=== PATIENT | female | born 1965 | race Caucasian/White ===

== ENCOUNTER → 2018-01-31 | Outpatient (CLI) | payer BC ==
--- NOTE | 2018-01-31 15:04 | MM ---
Reason for exam: follow-up at short interval from prior study. Last mammogram was performed 6 months ago. History: Patient is postmenopausal, has history of breast cancer at age 39, and history of other cancer. Family history of breast cancer in paternal grandmother, premenopausal breast cancer in mother at age 28, breast cancer in maternal grandmother, and breast cancer in paternal cousin. Benign US RT VAD breast biopsy of the right breast, July 24, 2012. Retro-pectoral silicone gel implants in both breasts, January 2007. Excisional biopsy of the right breast, October 03, 2005. Malignant right mammotome panel of the right breast, September 19, 2005. Chemotherapy, 2005. 2 lumpectomies of the right breast. Took hormonal contraceptives for 6 years. Physical Findings: Nurse did not find any significant physical abnormalities on exam. MG 3D Diag Mammo W/Cad RT CC and MLO view(s) were taken of the right breast. Prior study comparison: August 01, 2017, bilateral MG diag mamm implants THERESA w CAD. July 25, 2016, bilateral MG diagnostic mammo w CAD HTERESA. The breast tissue is heterogeneously dense. This may lower the sensitivity of mammography. Finding #1: Architectural distortion in the upper quadrant of the right breast consistent with known lumpectomy. Finding #2: There are typically benign vascular, linear calcifications in the right breast. Right implant. These results were verbally communicated with the patient and result sheet given to the patient on 01/31/18. ASSESSMENT: Benign, BI-RAD 2 RECOMMENDATION: Follow-up diagnostic mammogram of the right breast in 1 year.
== END | disposition home or self-care (01) ==
LOC: RADMAMWWP 11:45
PROVIDERS: ATTEND Obstetrics & Gynecology
DX: R92.8 Other abnormal and inconclusive findings on diagnostic imaging of breast (principal); Z98.82 Breast implant status
CPT/HCPCS: 77061; 77065

== ENCOUNTER → 2018-08-21 | Outpatient (CLI) | payer BC ==
[2018-08-21 13:00] VITALS: BP 102/57; PULSE 102; TEMP 97.8; BMI 23.5
--- NOTE | 2018-08-21 13:46 | P.HPOB ---
History of Present Illness H&P Date: 08/21/18 Chief Complaint: The patient is here for her routine gynecologic exam and mammogram. This is a 52-year-old with an LMP of 2012. The patient states she has had about 7 HSV outbreaks during the past year and would like to go back to daily suppressive therapy. The patient is otherwise without gynecologic complaints and denies any postmenopausal bleeding. Review of Systems The patient has gained 9 pounds over the last year. She denies respiratory or cardiac problems. G.I.: occasional heartburn. 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 BRCA testing was negative. History of Any Multi-Drug Resistant Organisms: None Reported Past Surgical History: Appendectomy, Bowel Resection (Partial colectomy for obstruction), Breast Surgery, Section (x4) Additional Past Surgical History / Comment(s): Bilateral lumpectomy, bilateral breast implants,right knee. 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 - Past Family History Mother Family Medical History: Cancer (Breast cancer) Additional Family Medical History / Comment(s): breast. Maternal grandmother had breast cancer. Father Additional Family Medical History / Comment(s): Heart disease. Paternal grand mother also had breast cancer. Paternal grandfather had colon cancer. Brother(s) Family Medical History: Diabetes Mellitus Medications and Allergies Home Medications Medication Instructions Recorded Confirmed Type No Known Home Medications 08/21/18 08/21/18 History Allergies Allergy/AdvReac Type Severity Reaction Status Date / Time No Known Allergies Allergy Unverified 08/21/18 12:47 Exam Vital Signs Temp Pulse BP 08/21/18 12:48 97.8 F 102 H 102/57 Intake and Output 08/20/18 08/21/18 08/21/18 22:59 06:59 14:59 Other: Weight 62.142 kg Height 5'4", weight 137 pounds, BMI 23.5. This is a well-developed well-nourished white female who is alert and oriented times 3 in no acute distress. HEENT: Within normal limits. NECK: Supple without mass or thyromegaly. CHEST AND LUNGS: Clear to auscultation. HEART: Regular rate and rhythm. BREASTS: Are without mass or discharge. There is a slightly dimpled area at the 12 o'clock position of the right breast consistent with her previous lumpectomy. Both breasts are consistent with breast implants. AXILLARY EXAM: Negative for adenopathy. BACK: Negative for CVA tenderness. ABDOMEN: Soft, nontender, without palpable masses. PELVIC EXAM: Normal external genitalia with mild atrophy. Cervix and vagina appear normal with mild atrophy. There is no unusual discharge. There is no evidence of prolapse. The uterus is midposition, nongravid size and nontender. There are no palpable adnexal masses or tenderness. RECTAL EXAM: rectovaginal exam is negative for mass or tenderness and is negative for occult blood. EXTREMITIES: Nontender. IMPRESSION: 1. 52-year-old menopausal female with normal gynecologic exam 2. Street of right breast cancer status post lumpectomy and adjuvant therapy with no evidence of recurrence. Bilateral breast implants. 3. History of genital HSV with increasing frequency of outbreaks. 7 outbreaks in the last year. PLAN: 1. Pap smear was performed. 2. Self breast awareness was discussed with the patient. 3. Diagnostic bilateral mammogram is due and this will be done today. 4. Osteoporosis prevention was discussed. I have stressed the importance of adequate calcium, vitamin D and regular exercise. Recommended amounts of calcium and vitamin D were also discussed. We will plan on doing bone density testing next year. 5. She will be restarted on daily Valtrex for suppression therapy. She will take Valtrex 500 mg 1 PO daily. The prescription will be sent to [facility] on [facility]. 6. She will return in one year.
--- NOTE | 2018-08-24 15:34 | MM ---
Reason for exam: history of breast cancer, conservation therapy. Last mammogram was performed 7 months ago. History: Patient is postmenopausal, has history of breast cancer at age 39, and history of other cancer. Family history of breast cancer in paternal grandmother, premenopausal breast cancer in mother at age 28, breast cancer in maternal grandmother, and breast cancer in paternal cousin. Benign US RT VAD breast biopsy of the right breast, July 24, 2012. Retro-pectoral silicone gel implants in both breasts, January 2007. Excisional biopsy of the right breast, October 03, 2005. Malignant right mammotome panel of the right breast, September 19, 2005. Chemotherapy, 2005. 2 lumpectomies of the right breast. Took hormonal contraceptives for 6 years. Physical Findings: Nurse did not find any significant physical abnormalities on exam. MG Diag Mamm Implants THERESA w CAD Bilateral CC, MLO, and ID view(s) were taken. Prior study comparison: January 31, 2018, right breast MG 3d diag mammo w/cad RT. August 01, 2017, bilateral MG diag mamm implants THERESA w CAD. The breast tissue is heterogeneously dense. This may lower the sensitivity of mammography. There is a distortion in the right breast consistent with lumpectomy redemonstrated. There are benign-appearing vascular right breast calcifications. Bilateral subpectoral implants are redemonstrated. No discrete abnormality. These results were verbally communicated with the patient and result sheet given to the patient on 08/21/18. ASSESSMENT: Benign, BI-RAD 2 RECOMMENDATION: Follow-up diagnostic mammogram of both breasts in 1 year.
== END ==
LOC: WWCWWP 12:40
PROVIDERS: ATTEND Obstetrics & Gynecology
DX: Z08 Encounter for follow-up examination after completed treatment for malignant neoplasm (principal); Z85.3 Personal history of malignant neoplasm of breast
CPT/HCPCS: 77066

== ENCOUNTER → 2019-10-22 | Outpatient (CLI) | payer BC ==
[2019-10-22 08:14] VITALS: BP 130/92; PULSE 86; RESP 18; TEMP 97.7
--- NOTE | 2019-10-22 08:56 | P.HPOB ---
History of Present Illness H&P Date: 10/22/19 Chief Complaint: The patient is here for her routine gynecologic exam and ma mmogram. This is a 54-year-old 014 with an LMP of 2013. The patient is without gynecologic complaints and denies any postmenopausal bleeding. The patient states she has done well with suppressive therapy for genital HSV. She has had very few outbreaks during the past year compared to prior to using the suppressive therapy. The patient has a history of right breast cancer and is status post lumpectomy and radiation treatment. She has bilateral breast implants. She states she occasionally noticed some internal breast itching especially when she is more active with her upper body. Review of Systems The patient's weight has been stable over the last year. She denies respiratory or cardiac problems. GI: Occasional heartburn. Past Medical History Past Medical History: No Reported History, Cancer Additional Past Medical History / Comment(s): Right breast cancer status post lumpectomy, chemotherapy and radiation therapy in 2003. 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 BRCA testing was negative. History of Any Multi-Drug Resistant Organisms: None Reported Past Surgical History: Appendectomy, Bowel Resection, Breast Surgery, Section Additional Past Surgical History / Comment(s): Bilateral lumpectomy, bilateral breast implants,right knee. Colonoscopy 2013 Past Psychological History: No Psychological Hx Reported Smoking Status: Former smoker Past Alcohol Use History: Occasional (2 per month) Additional Past Alcohol Use History / Comment(s): Quit smoking in her 20s. Past Drug Use History: None Reported Additional History: She has been since 1992 and her recently had an AL and CVA in 2019. 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 - Past Family History Mother Family Medical History: Cancer, Dementia Additional Family Medical History / Comment(s): breast cancer. Parkinson's disease. Maternal grandmother had breast cancer. Father Additional Family Medical History / Comment(s): Heart disease. Paternal grand mother also had breast cancer. Paternal grandfather had colon cancer. Brother(s) Family Medical History: Diabetes Mellitus Medications and Allergies Home Medications Medication Instructions Recorded Confirmed Type valACYclovir [Valtrex] 500 mg PO DAILY #90 tablet 08/21/18 10/22/19 Rx Omeprazole [PriLOSEC] 20 mg PO AC-BRKFST 10/22/19 10/22/19 History Allergies Allergy/AdvReac Type Severity Reaction Status Date / Time No Known Allergies Allergy Unverified 10/22/19 08:15 Exam Vital Signs Temp Pulse Resp BP Pulse Ox 10/22/19 08:05 97.7 F 86 18 130/92 96 Intake and Output 10/21/19 10/22/19 10/22/19 22:59 06:59 14:59 Other: Weight 63.049 kg Height 5 feet 4 inches, weight 139 pounds, BMI 23.9. This is a well-developed well-nourished white female who is alert and oriented times 3 in no acute distress. HEENT: Within normal limits. NECK: Supple without mass or thyromegaly. CHEST AND LUNGS: Clear to auscultation. HEART: Regular rate and rhythm. BREASTS: Are without mass or discharge. Breasts are consistent with bilateral breast implants. There is a slightly dimpled area at the 12 o'clock position of the right breast consistent with her previous lumpectomy. This is stable from previous exam. AXILLARY EXAM: Negative for adenopathy. BACK: Negative for CVA tenderness. ABDOMEN: Soft, nontender, without palpable masses. PELVIC EXAM: Normal external genitalia with mild to moderate atrophy. Cervix and vagina appear normal with mild to moderate atrophy. There is no unusual discharge. There is no evidence of prolapse. The uterus is midposition, nongravid size and nontender. There are no palpable adnexal masses or tenderness. RECTAL EXAM: Rectovaginal exam is negative for mass or tenderness and is negative for occult blood. EXTREMITIES: Nontender. IMPRESSION: 1. 54-year-old menopausal female with normal gynecologic exam. 2. History of right breast cancer status post lumpectomy and adjuvant therapy with no evidence of recurrence at this time. She has bilateral breast implants. 3. History of genital HSV with previously frequent outbreaks, improved with suppressive Valtrex therapy. PLAN: 1. Pap smear was deferred since she had a normal one on 08/21/2018. 2. Self breast awareness was discussed with the patient. 3. Screening mammogram will be done today even though she has a history of breast cancer. The patient requested screening mammogram instead of diagnostic mammogram for financial reasons. I had discussed this with Dr. Hayward, the radiologist, last year. She felt that screening mammogram would be acceptable if last year's mammogram was benign. 4. Osteoporosis prevention was discussed. I have stressed the importance of adequate calcium, vitamin D and regular exercise. Recommended amounts of calcium and vitamin D were also discussed. I recommended that she do a baseline bone density testing since she went through a fairly early menopause. 5. Anterior daily Valtrex for suppressive therapy. The electronic prescription will be sent to [facility] on [address]. 6. I have recommended screening colonoscopy since it is been about 10 years since her last one. I have recommended that she arrange this through her primary care physician. 7. She was advised to return in one year for her annual well woman exam.
== END ==
LOC: WWCWWP 07:59
PROVIDERS: ATTEND Obstetrics & Gynecology
DX: Z53.9 Procedure and treatment not carried out, unspecified reason (principal)

== ENCOUNTER → 2019-10-22 | Outpatient (CLI) | payer BC ==
--- NOTE | 2019-10-22 11:28 | MM ---
Reason for exam: screening (asymptomatic). Last mammogram was performed 1 year and 2 months ago. History: Patient is postmenopausal, has history of breast cancer at age 39, and history of other cancer. Family history of breast cancer in paternal grandmother, premenopausal breast cancer in mother at age 28, breast cancer in maternal grandmother, and breast cancer in paternal cousin. Benign US RT VAD breast biopsy of the right breast, July 24, 2012. Retro-pectoral silicone gel implants in both breasts, January 2007. Excisional biopsy of the right breast, October 03, 2005. Malignant right mammotome panel of the right breast, September 19, 2005. Chemotherapy, 2005. 2 lumpectomies of the right breast. Took hormonal contraceptives for 6 years. Physical Findings: A clinical breast exam by your physician is recommended on an annual basis and results should be correlated with mammographic findings. MG Screening Mammo Implant/CAD Bilateral CC, MLO, and ID view(s) were taken. Prior study comparison: August 21, 2018, bilateral MG diag mamm implants THERESA w CAD. January 31, 2018, right breast MG 3d diag mammo w/cad RT. The breast tissue is heterogeneously dense. This may lower the sensitivity of mammography. Finding #1: There is a stable mass decreased in size and architectural distortion in the right breast consistent with known lumpectomy changes. Finding #2: There are typically benign vascular, dystrophic calcifications in the right breast. There is no discrete abnormality. Bilatral subpectoral implants. ASSESSMENT: Benign, BI-RAD 2 RECOMMENDATION: Routine screening mammogram of both breasts in 1 year.
== END | disposition home or self-care (01) ==
LOC: RADMAMWWP 08:42
PROVIDERS: ATTEND Obstetrics & Gynecology
DX: Z12.31 Encounter for screening mammogram for malignant neoplasm of breast (principal)
CPT/HCPCS: 77067

== ENCOUNTER → 2020-01-27 | Outpatient (CLI) | payer BC ==
[2020-01-27 08:46] LABS: HCT 43.5 % (34.0-46.0); HGB 14.2 gm/dL (11.4-16.0); MCH 31.2 pg (25.0-35.0); MCHC 32.7 g/dL (31.0-37.0); MCV 95.3 fL (80.0-100.0); Platelet Count 314 k/uL (150-450); RBC 4.56 m/uL (3.80-5.40); RDW 12.8 % (11.5-15.5); WBC 6.6 k/uL (3.8-10.6)
[2020-01-27 15:54] LABS: African American GFR (CKD) 83.4 (60.0-200.0); Anion Gap 6.3 mmol/L (4.00-12.00); BUN/Creat Ratio 16.67 Ratio (12.00-20.00); Calcium 9.6 mg/dL (8.7-10.3); Carbon Dioxide 27.7 mmol/L (21.6-31.8); Chol/HDL Ratio 3.53; LDL Cholesterol,Calculated 145.8 mg/dL (0.0-131.0); Potassium 4.3 mmol/L (3.5-5.5); VLDL Calculation 21.2 mg/dL (5.00-40.00)
== END | disposition home or self-care (01) ==
LOC: LABWHC1 08:11
PROVIDERS: ATTEND Ophthalmology
DX: E11.9 Type 2 diabetes mellitus without complications (principal)
CPT/HCPCS: 36415; 80048; 80061; 85027

== ENCOUNTER → 2021-07-06 | Outpatient (CLI) | payer OTHER ==
[2021-07-06 13:00] VITALS: BP 114/81; PULSE 84; RESP 18; TEMP 98.3
--- NOTE | 2021-07-06 13:51 | P.HPOB ---
History of Present Illness H&P Date: 07/06/21 Chief Complaint: The patient is here for her routine gynecologic exam and ma mmogram. This is a 55-year-old 014 with an LMP of 2013. The patient is without gynecologic complaints and denies any postmenopausal bleeding. She has had rare herpes outbreaks with suppressive Valtrex treatment. She has noticed a small lump in the perianal region on the right side which has been there since 2016. She thinks it may have gotten slightly larger. This does not seem to cause her any problems. Review of Systems The patient has lost 16 pounds over the last 1-1/2 years. Weight loss has been intentional and she has used a combination of intermittent fasting and decreased sugar intake. She also has been exercising on a regular basis. She denies respiratory, cardiac, or G.I. problems. Past Medical History Past Medical History: No Reported History, Cancer Additional Past Medical History / Comment(s): Right breast cancer status post lumpectomy and radiation therapy in 2003. 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 BRCA testing was negative. History of Any Multi-Drug Resistant Organisms: None Reported Past Surgical History: Appendectomy, Bowel Resection, Breast Surgery, Section Additional Past Surgical History / Comment(s): Partial colectomy for twisted bowel in 2010 in 2011. Bilateral lumpectomy, bilateral breast implants,right knee. Colonoscopy 2013. Past Psychological History: No Psychological Hx Reported Smoking Status: Former smoker Past Alcohol Use History: Occasional (1-2 per month) Additional Past Alcohol Use History / Comment(s): Quit smoking in her 20s. Past Drug Use History: None Reported Additional History: She has been since 1991. Her had a previous MD and CVA in 2019. 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 - Past Family History Mother Family Medical History: Cancer, Dementia Additional Family Medical History / Comment(s): . breast cancer. Parkinson's disease. Maternal grandmother had breast cancer. Father Additional Family Medical History / Comment(s): Heart disease. Paternal grand mother also had breast cancer. Paternal grandfather had colon cancer. Brother(s) Family Medical History: Diabetes Mellitus Medications and Allergies Home Medications Medication Instructions Recorded Confirmed Type Omeprazole [PriLOSEC] 20 mg PO -BRKFST 10/22/19 07/06/21 History valACYclovir [Valtrex] 500 mg PO DAILY #90 tablet 10/22/19 07/06/21 Rx Ascorbic Acid [Vitamin C] 500 mg PO DAILY 07/06/21 07/06/21 History Cholecalciferol [Vitamin D3 (25 25 mcg PO DAILY 07/06/21 07/06/21 History Mcg = 1000 Iu)] Cyanocobalamin (Vitamin B-12) 1,000 mcg PO DAILY 07/06/21 07/06/21 History [Vitamin B-12] Ibuprofen [Ibu-200] 200 mg PO DAILY PRN 07/06/21 07/06/21 History Zinc 50 mg PO DAILY 07/06/21 07/06/21 History Allergies Allergy/AdvReac Type Severity Reaction Status Date / Time No Known Allergies Allergy Unverified 07/06/21 12:52 Exam Vital Signs Temp Pulse Resp BP Pulse Ox 07/06/21 12:54 98.3 F 84 18 114/81 97 Intake and Output 07/05/21 07/06/21 07/06/21 22:59 06:59 14:59 Other: Weight 55.792 kg Height 5 feet 3 inches, weight 123 pounds, BMI 21.8. This is a well-developed well-nourished white female who is alert and oriented times 3 in no acute distress. HEENT: Within normal limits. NECK: Supple without mass or thyromegaly. CHEST AND LUNGS: Clear to auscultation. HEART: Regular rate and rhythm. BREASTS: Are without mass or discharge. The breasts are consistent with bilateral implants. There is a scarred area in the upper aspect of the right breast consistent with her previous lumpectomy. The right implant is firmer than the left implant. AXILLARY EXAM: Negative for adenopathy. BACK: Negative for CVA tenderness. ABDOMEN: Soft, nontender, without palpable masses. PELVIC EXAM: Normal external genitalia with mild to moderate atrophy. Cervix and vagina appear normal with mild to moderate atrophy. There is no unusual discharge. There is no evidence of prolapse. The uterus is midposition, nongravid size and nontender. There are no palpable adnexal masses or tenderness. RECTAL EXAM: In the right perianal region there is a inclusion cyst measuring approximately 8 x 6 mm. This is somewhat firm and nontender. This has a benign appearance. She has noticed this since approximately 2016. Rectovaginal exam is negative for mass or tenderness and is negative for occult blood. EXTREMITIES: Nontender. IMPRESSION: 1. 55-year-old menopausal female with normal gynecologic exam. 2. History of right breast cancer status post lumpectomy and radiation therapy in 2004, with no evidence of recurrence on exam today. 3. History of genital HSV doing well with chronic suppression therapy. 4. Benign appearing right perianal inclusion cyst. Differential diagnosis will also include an old sclerosed hemorrhoid. PLAN: 1. Pap smear cotest was performed. 2. Self breast awareness was discussed with the patient. We have also discussed symptoms associated with inflammatory breast cancer. 3. Screening mammogram will be done today. 4. Conservative management for the right perianal inclusion cyst. She will call if she notices changes. 5. Osteoporosis prevention was discussed. I have stressed the importance of adequate calcium, vitamin D and regular exercise. Recommended amounts of calcium and vitamin D were also discussed. She believes she has lost 1 inch in her height. We will plan on having her do her Baseline bone density testing. The order slip was given to the patient for this. 6. Continue Valtrex 500 mg by mouth daily. I have asked her to consider changing to episodic use with outbreaks to see how often she is having outbreaks. She'll consider this in the upcoming year. The electronic prescription will be sent to [facility] on [facility]. 7. She has not received a Covid vaccination and I recommended that she look into doing this. She will consider this. 8. She was advised to return in one year for her annual well woman exam.
--- NOTE | 2021-07-08 11:46 | MM ---
Reason for exam: screening (asymptomatic). Last mammogram was performed 1 year and 8 months ago. History: Patient is postmenopausal, has history of breast cancer at age 39, and history of other cancer. Family history of breast cancer in paternal grandmother, premenopausal breast cancer in mother at age 28, breast cancer in maternal grandmother, and breast cancer in paternal cousin. Benign US RT VAD breast biopsy of the right breast, July 24, 2012. Retro-pectoral silicone gel implants in both breasts, January 2007. Excisional biopsy of the right breast, October 03, 2005. Malignant right mammotome panel of the right breast, September 19, 2005. Chemotherapy, 2005. 2 lumpectomies of the right breast. Took hormonal contraceptives for 6 years. Physical Findings: A clinical breast exam by your physician is recommended on an annual basis and results should be correlated with mammographic findings. MG Screening Mammo Implant/CAD Bilateral CC, MLO, and ID view(s) were taken. Prior study comparison: October 22, 2019, bilateral MG screening mammo implant/CAD. August 21, 2018, bilateral MG diag mamm implants THERESA w CAD. The breast tissue is heterogeneously dense. This may lower the sensitivity of mammography. Bilateral breast prothesis. Post surgical changes right breast. ASSESSMENT: Benign, BI-RAD 2 RECOMMENDATION: Routine screening mammogram of both breasts in 1 year.
== END ==
LOC: WWCWWP 12:42
PROVIDERS: ATTEND Obstetrics & Gynecology
DX: Z12.31 Encounter for screening mammogram for malignant neoplasm of breast (principal); Z01.419 Encounter for gynecological examination (general) (routine) without abnormal findings; Z85.3 Personal history of malignant neoplasm of breast; Z87.42 Personal history of other diseases of the female genital tract; Z87.891 Personal history of nicotine dependence; Z98.890 Other specified postprocedural states
CPT/HCPCS: 77067

== ENCOUNTER → 2022-05-03 | Outpatient (CLI) | payer OTHER ==
[2022-05-03 14:23] VITALS: PULSE 80; RESP 18; TEMP 98.5
--- NOTE | 2022-05-03 14:57 | P.PN ---
Progress Note - Text Progress Note Date: 05/03/22 Chief Complaint: Right breast redness on lateral breast skin which started about 3 weeks ago. HPI: This is a 56-year-old 014 with an LMP of 2013. The patient has a history of right breast cancer in 2005 and is status post lumpectomy and radiation therapy. She has bilateral breast implants. About 3 weeks ago she noticed a round area of skin on the lateral aspect of the right breast which was reddish pink. She states it was the size of a silver dollar. She did not experience any pain or discomfort. She did not feel any mass in the area and the skin was not raised. She waited about 1 week and it did not resolve so she made an appointment to be seen. The first appointment was in 2 weeks. Over the last 2 weeks, she states it has decreased in size and is less noticeable. The color changed from pinkish to slightly purple. She denies any significant trauma, but she does remember in the recent past she had a door hit the breast on that side. She denies fever. She recalls a discussion that I had with her regarding inflammatory breast cancer and this is what made her get an appointment to see me. ROS: Unremarkable. PE: Blood pressure: 122/78, Height: 5 feet 3 inches, Weight: 116 pounds, Temperature: And he 8.1, Pulse: 81. Pulse oximeter 99%. This is a well developed, well nourished, white female who is alert and orientedx3, in no acute distress. The right breast is consistent with her history of implants. There is a very faint redness in the vicinity of where she noticed the skin changes. It is very indistinct and barely noticeable. The skin does not appear thickened or raised. There are no prominent pores and the area is nontender. There are no masses in the right breast. The breast is nontender. There is no nipple discharge. Right axillary region is unremarkable. There are no palpable masses or tenderness. Her last mammogram done on 07/06/2021 was benign. Impression: 1. 56-year-old menopausal female with history of right breast cancer in 2005 who is status post lumpectomy and radiation therapy who had redness in the lateral aspect of the right breast that was circular and has nearly completely resolved. Differential diagnosis will include an insect bite, minor trauma, focal skin irritation and much less likely, some type of breast neoplasm. At this time I do not think this represents inflammatory breast cancer based on its resolution and nonedematous appearance. Plan: 1. Because I believe this most likely represents a benign condition which is nearly fully resolved, I do not feel any action is needed at this time. 2. She will return in approximately 2 months for her annual well woman examination and we can reevaluate the breasts at that time. She was instructed to call or make an appointment sooner if she notices changes in the area. 3. Her oncologist and breast surgeon are no longer practicing in the area. I have discussed the option of a second opinion with a breast specialist, Dr. Adarsh Castro. She is declining this at this time. 4. She will return in 2 months or sooner if problems. Time spent with the patient: 15 minutes
== END ==
LOC: WWCWWP 13:59
PROVIDERS: ATTEND Obstetrics & Gynecology
DX: Z08 Encounter for follow-up examination after completed treatment for malignant neoplasm (principal); Z85.3 Personal history of malignant neoplasm of breast; Z98.890 Other specified postprocedural states; Z91.048 Other nonmedicinal substance allergy status; Z87.891 Personal history of nicotine dependence

== ENCOUNTER → 2022-08-09 | Outpatient (CLI) | payer OTHER ==
[2022-08-09 15:02] VITALS: BP 108/68; PULSE 74; RESP 17; TEMP 97.9
--- NOTE | 2022-08-09 15:43 | P.HPOB ---
History of Present Illness H&P Date: 08/09/22 Chief Complaint: The patient is here for her routine gynecologic exam and ma mmogram. This is a 56-year-old 014 with an LMP of 2012. The patient is on Valtrex for history of genital HSV. She states she has had about 3 or 4 outbreaks during the past year. She states she has not always taken on every single day. She would like to continue on daily Valtrex. She is otherwise without gynecologic complaints. Review of Systems The patient has lost 5 pounds over the last year. She denies respiratory, cardiac, or G.I. problems. Past Medical History Past Medical History: No Reported History, Cancer Additional Past Medical History / Comment(s): Right breast cancer status post lumpectomy and radiation therapy in 2003. Past [place] history: genital HSV. BRCA testing was negative. History of Any Multi-Drug Resistant Organisms: None Reported Past Surgical History: Appendectomy, Bowel Resection, Breast Surgery, Section Additional Past Surgical History / Comment(s): Partial colectomy for twisted bowel in 2010 in 2011. Bilateral lumpectomy, bilateral breast implants,right knee. Colonoscopy 2013. Past Psychological History: No Psychological Hx Reported Smoking Status: Former smoker Past Alcohol Use History: Occasional (0-2 per month) Additional Past Alcohol Use History / Comment(s): Quit smoking in her 20s. Past Drug Use History: None Reported Additional History: She has been since 1991, but is not sexually active. Her had a previous RI and CVA in 2019. 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 - Past Family History Mother Family Medical History: Cancer, Dementia Additional Family Medical History / Comment(s): . breast cancer. Parkinson's disease. Maternal grandmother had breast cancer. Father Additional Family Medical History / Comment(s): Heart disease. Paternal grand mother also had breast cancer. Paternal grandfather had colon cancer. Brother(s) Family Medical History: Diabetes Mellitus Medications and Allergies Home Medications Medication Instructions Recorded Confirmed Type Ascorbic Acid [Vitamin C] 500 mg PO DAILY 07/06/21 08/09/22 History Cholecalciferol [Vitamin D3 (25 25 mcg PO DAILY 07/06/21 08/09/22 History Mcg = 1000 Iu)] Cyanocobalamin (Vitamin B-12) 1,000 mcg PO DAILY 07/06/21 08/09/22 History [Vitamin B-12] Ibuprofen [Ibu-200] 200 mg PO DAILY PRN 07/06/21 08/09/22 History Zinc 50 mg PO DAILY 07/06/21 08/09/22 History valACYclovir HCL [Valtrex] 500 mg PO DAILY #90 tablet 07/06/21 08/09/22 Rx Iron 18 mg PO DAILY 08/09/22 08/09/22 History Turmeric Root Extract [Turmeric] 500 mg PO DAILY 08/09/22 08/09/22 History Allergies Allergy/AdvReac Type Severity Reaction Status Date / Time adhesive tape Allergy Rash/Hives Unverified 08/09/22 14:57 Exam Vital Signs Temp Pulse Resp BP Pulse Ox 08/09/22 14:59 97.9 F 74 17 108/68 95 Intake and Output 08/09/22 08/09/22 08/09/22 06:59 14:59 22:59 Other: Weight 53.524 kg Height 5 feet 3 inches, weight 118 pounds, BMI 20.9. This is a well-developed well-nourished white female who is alert and oriented times 3 in no acute distress. HEENT: Within normal limits. NECK: Supple without mass or thyromegaly. CHEST AND LUNGS: Clear to auscultation. HEART: Regular rate and rhythm. BREASTS: Are without mass or discharge. Breasts are consistent with bilateral implants. There is a dimpled scarred area near the 12 o'clock position of the right breast consistent with her previous lumpectomy. The skin is without lesions or unusual redness. AXILLARY EXAM: Negative for adenopathy. BACK: Negative for CVA tenderness. ABDOMEN: Soft, nontender, without palpable masses. PELVIC EXAM: Normal external genitalia with mild to moderate atrophy. Cervix and vagina appear normal with mild to moderate atrophy. There is no unusual discharge. There is no evidence of prolapse. The uterus is midposition, nongravid size and nontender. There are no palpable adnexal masses or tenderness. RECTAL EXAM: Rectovaginal exam is negative for mass or tenderness and is negativ e for occult blood. EXTREMITIES: Nontender. IMPRESSION: 1. 56-year-old menopausal female with normal gynecologic exam. 2. History of right breast cancer status post lumpectomy and radiation therapy in 2003 with no evidence of recurrence on exam today. 3. 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 She has had a few outbreaks this year, but states she has not been good about taking it every single day. PLAN: 1. Pap smear was deferred since she had a negative Pap smear cotest on 07/06/2021. 2. Self breast awareness was discussed with the patient. We have also discussed symptoms associated with inflammatory breast cancer. 3. Bilateral mammogram will be done today. 4. Continue daily Valtrex for genital HSV chronic suppression. The electronic prescription for Valtrex 500 mg by mouth daily will be sent to [facility] pharmacy on [facility]. 5. Osteoporosis prevention was discussed. I have stressed the importance of adequate calcium, vitamin D and regular exercise. Recommended amounts of calcium and vitamin D were also discussed. Since her mom has had osteoporosis, I have recommended that we start bone density testing before age 60. The order slip will be mailed to the patient. 6. She believes she is due for a colonoscopy since it has been nearly 10 years. I recommended that she establish with a primary care physician and have the colonoscopy arranged through the PCP. 7. She was advised to return in one year for her annual well woman exam.
--- NOTE | 2022-08-10 18:40 | MM ---
Reason for Exam: Hx of breast augmentation, asymptomatic. Last mammogram was performed 1 year(s) and 2 month(s) ago. Patient History: Menarche at age 11. First Full-Term at age 17. Postmenopausal. Breast cancer, age 39. Other cancer. Previous chest radiation therapy at age 39. Previous chemotherapy at age 39. Patient used Hormonal Contraceptives for 6 years. 10/03/2005, Excisional Biopsy on the Right side. Lumpectomy on the Right side. Lumpectomy on the Right side. 07/24/2012, Benign Core Biopsy on the right side. 09/19/2005, Malignant Core Biopsy on the right side. 2005, Chemotherapy. 01/2007, Bilateral Implants. Paternal grandmother had breast cancer. Maternal grandmother had breast cancer. Paternal cousin had breast cancer. Mother had breast cancer, age 28. Prior Study Comparison: 08/21/2018 Bilateral Diagnostic Mammogram, [facility]. 10/22/2019 Bilateral Screening Mammogram, [facility]. 07/06/2021 Bilateral Screening Mammogram, [facility]. Tissue Density: The breast tissue is heterogeneously dense. This may lower the sensitivity of mammography. Findings: Analyzed By CAD. Redemonstrated bilateral retropectoral silicone implants. Postsurgical and posttreatment change redemonstrated right breast with vascular and fat necrosis calcifications. The dystrophic fat necrosis calcification at the surgical scar shows continued gradual progression. No significant change from prior exams. Overall Assessment: Benign, BI-RAD 2 Management: Screening Mammogram of both breasts in 1 year. 1. Patient should continue monthly self breast exams. 2. A clinical breast exam by your physician is recommended on an annual basis. 3. This exam should not preclude additional follow-up of suspicious palpable abnormalities. Electronically signed and approved by: Sobeida Truong M.D. Radiologist
== END ==
LOC: WWCWWP 14:45
PROVIDERS: ATTEND Obstetrics & Gynecology
DX: Z01.419 Encounter for gynecological examination (general) (routine) without abnormal findings (principal); Z12.31 Encounter for screening mammogram for malignant neoplasm of breast; A60.00 Herpesviral infection of urogenital system, unspecified; Z78.0 Asymptomatic menopausal state; Z90.11 Acquired absence of right breast and nipple; Z92.3 Personal history of irradiation; Z79.620 Long term (current) use of immunosuppressive biologic; Z80.3 Family history of malignant neoplasm of breast; Z91.048 Other nonmedicinal substance allergy status; Z87.891 Personal history of nicotine dependence
CPT/HCPCS: 77067

== ENCOUNTER → 2023-09-27 | Outpatient (CLI) | payer OTHER ==
--- NOTE | 2023-09-28 11:56 | US ---
EXAMINATION TYPE: US st tissue head/neck DATE OF EXAM: 09/27/2023 COMPARISON: NONE CLINICAL INDICATION: Female, 57 years old with history of R22.0 LOCALIZED SWELLING, MASS AND LUMP, HE AD; Patient states right supraclavicular area swells up when she is sick. At this time, she feels go od. TECHNIQUE: Multiple sonographic images taken. FINDINGS: Patients area of concern scanned. No prominent masses or lesions seen. Contralateral sandra ges taken for comparison. IMPRESSION: Targeted scanning at the patient's area of concern, right supraclavicular region shows no discrete so nographic finding.
== END | disposition home or self-care (01) ==
LOC: RADUSWWP 15:28
PROVIDERS: ATTEND Family Medicine
DX: R22.0 Localized swelling, mass and lump, head (principal)
CPT/HCPCS: 76536

== ENCOUNTER → 2023-10-25 | Outpatient (CLI) | payer OTHER ==
[2023-10-25 09:41] VITALS: BP 115/77; PULSE 75; RESP 17; TEMP 98.4
--- NOTE | 2023-10-25 10:18 | P.HPOB ---
History of Present Illness H&P Date: 10/25/23 Chief Complaint: The patient is here for her routine gynecologic exam and ma mmogram. This is a 58-year-old 014 with an LMP of 2012. The patient has a history of genital HSV. She did not use the daily Valtrex for suppression and did not have any outbreaks during the past year. She is without gynecologic complaints. She did get last year and has not been sexually active. Review of Systems The patient has gained 12 pounds over the last year. She feels that she was under weight last year. She denies respiratory, cardiac, or G.I. problems. Past Medical History Past Medical History: Cancer Additional Past Medical History / Comment(s): Right breast cancer status post lumpectomy and radiation therapy in 2003. Past [employer] history: genital HSV. BRCA testing was negative. History of Any Multi-Drug Resistant Organisms: None Reported Past Surgical History: Appendectomy, Bowel Resection, Breast Surgery, Section Additional Past Surgical History / Comment(s): Partial colectomy for twisted bowel in 2010 in 2011. Bilateral lumpectomy, bilateral breast implants,right knee. Colonoscopy 2013. Past Psychological History: No Psychological Hx Reported Smoking Status: Former smoker Past Alcohol Use History: Occasional (0-2 drinks per month.) Additional Past Alcohol Use History / Comment(s): Quit smoking in her 20s. Past Drug Use History: None Reported Additional History: She is . She is currently not seeing anybody previous time and is not sexually active at this time. 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 - Past Family History Mother Family Medical History: Cancer, Dementia Additional Family Medical History / Comment(s): . breast cancer. Parkinson's disease. Maternal grandmother had breast cancer. Father Additional Family Medical History / Comment(s): Heart disease. Paternal grand mother also had breast cancer. Paternal grandfather had colon cancer. Brother(s) Family Medical History: Diabetes Mellitus Medications and Allergies Home Medications Medication Instructions Recorded Confirmed Type Ascorbic Acid [Vitamin C] 500 mg PO DAILY 07/06/21 10/25/23 History Cholecalciferol [Vitamin D3 (25 25 mcg PO DAILY 07/06/21 10/25/23 History Mcg = 1000 Iu)] Cyanocobalamin (Vitamin B-12) 1,000 mcg PO DAILY 07/06/21 10/25/23 History [Vitamin B-12] Ibuprofen [Ibu-200] 200 mg PO DAILY PRN 07/06/21 10/25/23 History Zinc 50 mg PO DAILY 07/06/21 10/25/23 History Turmeric Root Extract [Turmeric] 500 mg PO DAILY 08/09/22 10/25/23 History valACYclovir HCL [Valtrex] 500 mg PO DAILY #90 tablet 08/09/22 10/25/23 Rx Allergies Allergy/AdvReac Type Severity Reaction Status Date / Time adhesive tape Allergy Rash/Hives Unverified 10/25/23 09:26 Exam Vital Signs Temp Pulse Resp BP Pulse Ox 10/25/23 09:28 98.4 F 75 17 115/77 97 Intake and Output 10/24/23 10/25/23 10/25/23 22:59 06:59 14:59 Other: Weight 58.967 kg Height 5 feet 3 inches, weight 130 pounds, BMI 23.0. This is a well-developed well-nourished white female who is alert and oriented times 3 in no acute distress. HEENT: Within normal limits. NECK: Supple without mass or thyromegaly. CHEST AND LUNGS: Clear to auscultation. HEART: Regular rate and rhythm. BREASTS: Are without mass or discharge. Breasts are consistent with bilateral implants. AXILLARY EXAM: Negative for adenopathy. BACK: Negative for CVA tenderness. ABDOMEN: Soft, nontender, without palpable masses. PELVIC EXAM: Normal external genitalia with mild to moderate atrophy. Cervix and vagina appear normal with mild to moderate atrophy. There is no unusual discharge. There is no evidence of prolapse. The uterus is midposition, nongravid size and nontender. There are no palpable adnexal masses or tenderness. RECTAL EXAM: Rectovaginal exam is negative for mass or tenderness and is negative for occult blood. EXTREMITIES: Nontender. IMPRESSION: 1. 58-year-old menopausal female with normal gynecologic exam. 2. History of genital HSV in the past with no outbreaks during the past year. 3. History of right breast cancer status post lumpectomy and radiation with implants. There is no evidence of recurrence on exam today. PLAN: 1. Pap smear was deferred since she had a negative Pap smear cotest on 07/06/2021. 2. Self breast awareness was discussed with the patient. We have also discussed symptoms associated with inflammatory breast cancer. 3. Screening bilateral mammogram will be done today. 4. Osteoporosis prevention was discussed. I have stressed the importance of adequate calcium, vitamin D and regular exercise. Recommended amounts of calcium and vitamin D were also discussed. We will plan on doing a bone density test in 1 year and this will be a baseline study. 5. Valtrex 500 mg by mouth twice a day 3 days which she can start at the onset of a genital herpes outbreak. The electronic prescription will be sent to [facility] on [facility]. 6. She knows that a colonoscopy is due and she plans to arrange this through her PCP. 7. She was advised to return in one year for her annual well woman exam.
--- NOTE | 2023-10-26 07:54 | MM ---
Reason for Exam: Screening (asymptomatic). Last mammogram was performed 1 year(s) and 2 month(s) ago. Patient History: Menarche at age 11. First Full-Term at age 17. Postmenopausal. Breast cancer, right, age 39. Other cancer. Previous chest radiation therapy at age 39. Previous chemotherapy at age 39. Patient used Hormonal Contraceptives for 6 years. 10/03/2005, Excisional Biopsy on the Right side. Lumpectomy on the Right side. Lumpectomy on the Right side. 07/24/2012, Benign Core Biopsy on the right side. 09/19/2005, Malignant Core Biopsy on the right side. 2005, Chemotherapy. 01/2007, Bilateral Implants. Paternal grandmother had breast cancer. Maternal grandmother had breast cancer. Paternal cousin had breast cancer. Mother had breast cancer, age 28. Prior Study Comparison: 10/22/2019 Bilateral Screening Mammogram, [facility]. 07/06/2021 Bilateral Screening Mammogram, [facility]. 08/09/2022 Bilateral MG screening mammo implant/CAD, [facility]. Tissue Density: There are scattered areas of fibroglandular density. Findings: Analyzed By CAD. Bilateral breast implants appear intact. There is no suspicious group of microcalcifications or new suspicious mass. Benign-appearing calcifications right breast. Overall Assessment: Benign, BI-RAD 2 Management: Screening Mammogram of both breasts in [address] [facility] will attempt to contact patient to return for supplemental views and ultrasound if indicated. Patient should continue monthly self-breast exams. A clinical breast exam by your physician is recommended on an annual basis. This exam should not preclude additional follow-up of suspicious palpable abnormalities. Note on Sonali scores and lifetime risk: 1. A Sonali score greater than 3% is considered moderate risk. If this is the case, consider specialist referral to assess eligibility for a risk reducing agent. 2. If overall lifetime risk for the development of breast cancer is 20% or higher, the patient may qualify for future screening with alternating mammogram and breast MRI. Electronically signed and approved by: Ravi Zimmer DO
== END ==
LOC: WWCWWP 09:02
PROVIDERS: ATTEND Obstetrics & Gynecology
DX: Z01.419 Encounter for gynecological examination (general) (routine) without abnormal findings (principal); Z12.31 Encounter for screening mammogram for malignant neoplasm of breast; Z78.0 Asymptomatic menopausal state; Z85.3 Personal history of malignant neoplasm of breast; Z80.3 Family history of malignant neoplasm of breast; Z87.891 Personal history of nicotine dependence; Z92.3 Personal history of irradiation; Z86.19 Personal history of other infectious and parasitic diseases; Z91.048 Other nonmedicinal substance allergy status
CPT/HCPCS: 77067